=== PATIENT | male | born 1945 | race Caucasian/White ===

== ENCOUNTER → 2021-06-19 | Outpatient (CLI) | payer OTHER ==
[2021-06-19 13:15] LABS: BASOPHILS ABSOLUTE AUTO 0.01 K/mm3 (0.00-0.23); BASOPHILS PERCENT AUTO 0 % (0-2); EOSINOPHILS ABSOLUTE AUTO 0.03 K/mm3 (0.00-0.68); EOSINOPHILS PERCENT AUTO 0 % (0-6); Hematocrit 43.2 % (37.0-53.0); Hemoglobin 15.9 g/dL (13.5-17.5); IMMATURE GRAN ABSOLUTE AUTO 0.01 K/mm3 (0.00-0.10); IMMATURE GRAN PERCENT AUTO 0 % (0-1); LYMPHOCYTES ABSOLUTE AUTO 0.97 K/mm3 (0.84-5.20); LYMPHOCYTES PERCENT AUTO 14 % (21-46); MONOCYTES ABSOLUTE AUTO 0.54 K/mm3 (0.16-1.47); MONOCYTES PERCENT AUTO 8 % (4-13); Mean Corpuscular HGB Conc 36.8 g/dL (31.5-36.5); Mean Corpuscular Volume 93 fL (80-100); Mean Platelet Volume 9.5 fL (9.1-12.4); NEUTROPHILS ABSOLUTE AUTO 5.38 K/mm3 (1.96-9.15); NEUTROPHILS PERCENT AUTO 78 % (41-73); Platelet Count 207 K/mm3 (150-400); RDW Coefficient Variation 11.5 % (11.7-14.2); Red Blood Cell Count 4.67 M/mm3 (4.30-5.90); White Blood Cell Count 6.94 K/mm3 (4.00-11.30)
[2021-06-19 13:29] LABS: Albumin, Blood 3.7 g/dL (3.4-5.0); Albumin/Globulin Ratio 1.1 (0.8-1.8); Bilirubin, Total 0.8 mg/dL (0.1-1.0); Bun/Creatinine Ratio 16.2 (12.0-20.0); Creatinine, Blood 1.48 mg/dL (0.60-1.20); Globulin, Blood 3.5 g/dL (2.2-4.0); Potassium, Blood 4.5 mmol/L (3.5-5.5); Total Protein, Blood 7.2 g/dL (6.4-8.2)
== END | disposition home or self-care (01) ==
LOC: LAB SHORT 13:11 → LAB 13:11
PROVIDERS: Physician Assistant
DX: U07.1 COVID-19 (principal)
CPT/HCPCS: 80053; 85025

== ENCOUNTER 2024-01-04 15:35 | Observation (INO) | payer OTHER ==
[~2024-01-04] VITALS: Ht 182.9 cm; Wt 84.8 kg
[2024-01-04 17:05] LABS: BASOPHILS ABSOLUTE AUTO 0.03 K/mm3 (0.00-0.23); BASOPHILS PERCENT AUTO 1 % (0-2); EOSINOPHILS ABSOLUTE AUTO 0.15 K/mm3 (0.00-0.68); EOSINOPHILS PERCENT AUTO 2 % (0-6); Hematocrit 41.2 % (37.0-53.0); Hemoglobin 14.1 g/dL (13.5-17.5); IMMATURE GRAN ABSOLUTE AUTO 0.02 K/mm3 (0.00-0.10); IMMATURE GRAN PERCENT AUTO 0 % (0-1); LYMPHOCYTES ABSOLUTE AUTO 2.13 K/mm3 (0.84-5.20); LYMPHOCYTES PERCENT AUTO 33 % (21-46); MONOCYTES PERCENT AUTO 9 % (4-13); Mean Corpuscular HGB 34.1 pg (26.0-34.0); Mean Corpuscular HGB Conc 34.2 g/dL (31.5-36.5); Mean Corpuscular Volume 100 fL (80-100); NEUTROPHILS ABSOLUTE AUTO 3.51 K/mm3 (1.96-9.15); NEUTROPHILS PERCENT AUTO 55 % (41-73); Platelet Count 237 K/mm3 (150-400); RDW Coefficient Variation 12.8 % (11.7-14.2); RDW Standard Deviation 46.7 fL (35.1-46.3); Red Blood Cell Count 4.13 M/mm3 (4.30-5.90); White Blood Cell Count 6.44 K/mm3 (4.00-11.30)
[2024-01-04 17:23] LABS: Albumin, Blood 3.9 g/dL (3.4-5.0); Albumin/Globulin Ratio 1.1 (0.8-1.8); Bilirubin, Total 0.4 mg/dL (0.1-1.0); Bun/Creatinine Ratio 16.4 (12.0-20.0); Calcium, Blood 9.1 mg/dL (8.5-10.1); Creatinine, Blood 2.25 mg/dL (0.60-1.20); Globulin, Blood 3.5 g/dL (2.2-4.0); Potassium, Blood 5.7 mmol/L (3.5-5.5); Total Protein, Blood 7.4 g/dL (6.4-8.2)
[2024-01-04] MEDS ORDERED: Albuterol 2.5 MG/3 ML VIAL INH SCH (17:30)
[2024-01-04] MEDS ORDERED: NS 1,000 ML IV SCH ×2 (17:30→18:20)
[2024-01-04] MEDS ORDERED: Sodium Zirconium Cyclosilicate 10 GM Packet PO ONE (17:45)
[2024-01-04 17:58] LABS: Magnesium, Blood 1.7 mg/dL (1.6-2.4)
[2024-01-04] MEDS ORDERED: Ondansetron HCl 2 MG / ML 2ML Vial IV PRN (18:20)
[2024-01-04 18:21] LABS: Source, Urine Clean Catch
[2024-01-04 18:24] LABS: Appearance, Urine Clear (Clear); Bilirubin, Urine Neg (Neg); Blood, Urine Neg (Neg); Glucose Qualitative, Urine Neg (Neg); Ketones, Urine Neg (Neg); Leukocyte Esterase, Urine Neg (Neg); Nitrite, Urine Neg (Neg); Protein, Urine Neg (Neg); Urobilinogen, Urine NORM (Normal)
[2024-01-04 18:25] LABS: Color, Urine Pale Yellow (P-Yellow)
[2024-01-04 19:25] LABS: Bun/Creatinine Ratio 18.6 (12.0-20.0); Calcium, Blood 8.5 mg/dL (8.5-10.1); Creatinine, Blood 1.99 mg/dL (0.60-1.20); Potassium, Blood 4.9 mmol/L (3.5-5.5)
[2024-01-04 19:41] VITALS: BP 141/64
[2024-01-04] MEDS ORDERED: Aspir 8181 MG PO (20:08)
[2024-01-04] MEDS ORDERED: AMLODIPINE BESY10 MG PO (20:09)
[2024-01-04] MEDS ORDERED: ATOR20 PO (20:10)
[2024-01-04] MEDS ORDERED: PAIN RELIEF PA1 EACH TOP (20:11)
[2024-01-04] MEDS ORDERED: THERA-D2000 UNIT PO (20:12)
[2024-01-04] MEDS ORDERED: CHROMIUM PIC1000 MC1 PO (20:12)
[2024-01-04] MEDS ORDERED: ARTHRITIS PAIN150 GM TOP (20:14)
[2024-01-04] MEDS ORDERED: NEURONTIN300 MG PO (20:15)
[2024-01-04] MEDS ORDERED: MIRALAX1714 PO (20:17)
[2024-01-04] MEDS ORDERED: Flomax0.4 MG PO (20:19)
[2024-01-04] MEDS ORDERED: REFRESH RELIEVA10 M4 BOTHEYES (20:20)
[2024-01-04] MEDS ORDERED: Heparin Sodium,Porcine 5,000 UNIT/0.5 ML SDV SC SCH (21:00)
[2024-01-04 22:47] LABS: Bun/Creatinine Ratio 17.4 (12.0-20.0); Calcium, Blood 8.8 mg/dL (8.5-10.1); Creatinine, Blood 1.95 mg/dL (0.60-1.20); Potassium, Blood 5.1 mmol/L (3.5-5.5)
[2024-01-04] MEDS ORDERED: Gabapentin 300 MG Cap PO SCH (23:00)
[2024-01-04] MEDS ORDERED: Tamsulosin HCl 0.4 MG Cap PO SCH (23:01)
[2024-01-04] MEDS ORDERED: Peg 400/Hypromellose/Glycerin 15 DROP/ML BTL BOTHEYES PRN (23:05)
[2024-01-05] MEDS ORDERED: REFRESH TEARS P10 ML BOTHEYES (01:01)
[2024-01-05] MEDS ORDERED: SILDENAFIL CIT100 MG PO (01:02)
--- NOTE | 2024-01-05 03:22 | NUR ---
AT APPROXIMATELY 2054 NOTIFIED BY [employer] PT HAD 4 SECOND RUN OF SVT IN 150'S. DR. CINTRON AND I IN PT ROOM, NOTIFIED.
--- NOTE | 2024-01-05 03:51 | NUR ---
NEW ADMIT. Christiano/PRISCILLA. . NASEEM @76 X1 BAG INFUSING. MONITORING URINE OUPUTM, CONTINENT VIA URINAL. DR. CINTRON CAME UP TO UNIT WHILE IN ROOM, TOLD PT ADMITTED FOR OBSERVATION TO MONITOR KIDNEY FUNCTION. PT STATED WANTS TO GO HOME LATER TODAY THE . DR. ICNTRON AND MYSELF EDUCATED ON PLAN OF CARE AND RECHECKING OF LABS IN AM AND RE-EVALUATING THEN. PT VERBALIZES UNDERSTANDING. AT BEDSIDE, CANNOT DRIVE HERSELF. PT CALLS APPRORPRIATELY. INDEPENDENT IN ROOM. ABRASIONS TO BILATERAL LOWER EXTREMITIES FROM WORKING OUTSIDE AT HOME, PHOTO IN CHART.
[2024-01-05 05:30] VITALS: BP 135/82
[2024-01-05 05:42] LABS: BASOPHILS ABSOLUTE AUTO 0.03 K/mm3 (0.00-0.23); BASOPHILS PERCENT AUTO 1 % (0-2); EOSINOPHILS ABSOLUTE AUTO 0.13 K/mm3 (0.00-0.68); EOSINOPHILS PERCENT AUTO 2 % (0-6); Hematocrit 38.6 % (37.0-53.0); Hemoglobin 13.1 g/dL (13.5-17.5); IMMATURE GRAN ABSOLUTE AUTO 0.02 K/mm3 (0.00-0.10); IMMATURE GRAN PERCENT AUTO 0 % (0-1); LYMPHOCYTES ABSOLUTE AUTO 1.52 K/mm3 (0.84-5.20); LYMPHOCYTES PERCENT AUTO 25 % (21-46); MONOCYTES ABSOLUTE AUTO 0.53 K/mm3 (0.16-1.47); MONOCYTES PERCENT AUTO 9 % (4-13); Mean Corpuscular HGB 33.8 pg (26.0-34.0); Mean Corpuscular HGB Conc 33.9 g/dL (31.5-36.5); Mean Corpuscular Volume 100 fL (80-100); NEUTROPHILS ABSOLUTE AUTO 3.81 K/mm3 (1.96-9.15); NEUTROPHILS PERCENT AUTO 63 % (41-73); Platelet Count 207 K/mm3 (150-400); RDW Coefficient Variation 12.7 % (11.7-14.2); RDW Standard Deviation 46.8 fL (35.1-46.3); Red Blood Cell Count 3.88 M/mm3 (4.30-5.90); White Blood Cell Count 6.04 K/mm3 (4.00-11.30)
[2024-01-05 06:11] LABS: Albumin, Blood 3.5 g/dL (3.4-5.0); Albumin/Globulin Ratio 1.2 (0.8-1.8); Bilirubin, Total 0.3 mg/dL (0.1-1.0); Bun/Creatinine Ratio 18.2 (12.0-20.0); Calcium, Blood 8.8 mg/dL (8.5-10.1); Creatinine, Blood 1.76 mg/dL (0.60-1.20); Potassium, Blood 5.3 mmol/L (3.5-5.5); Total Protein, Blood 6.5 g/dL (6.4-8.2)
[2024-01-05 07:20] VITALS: BP 134/72
[2024-01-05] MEDS ORDERED: Insulin Human Lispro 100 Units/ML 3ML Syringe SC SCH (07:30)
--- NOTE | 2024-01-05 08:18 | NUR ---
Charge Nurse Harleen called regarding sustaining AFIB with RVR rate 140-160's, no medicaitons or orders given NOC nor presently at this time. Awaiting MD to see patiend and give orders. Patient is asymptomatic currently other VSS stable.
[2024-01-05] MEDS ORDERED: AmLODIPine Besylate 5 MG Tab PO SCH (09:00)
[2024-01-05] MEDS ORDERED: Aspirin 81 MG TabEC PO SCH (09:00)
--- NOTE | 2024-01-05 10:34 | NUR ---
DISCHARGE PIV REMOVED CATHETER TIP INTECT, NO REDNESS OR EDEMA NOTED, PRESSURE DRESSING APPLIED WITH COBAN. ALL DISCHARGE INSTRUCTIONS REVIEWED WITH PATIENT AND HIS , BOTH VERBALIZED AN UNDERSTANDING AND WRITTEN DISCHARGE INSTRUCTIONS PROVIDED FOR THEM TO TAKE HOME. PT D/CD TO HOME AT THIS TIME VIA PRIVATE VEHICLE.
[2024-01-06] MEDS ORDERED: Sodium Zirconium Cyclosilicate 10 GM Packet PO SCH (09:00)
== END 2024-01-05 10:34 | disposition home or self-care (01) ==
LOC: ER 15:35 → MEDS 15:36 → ENPENDDIS 01-05 10:10 → MEDS 01-05 10:34
PROVIDERS: Student in an Organized Health Care Education/Training Program; ADMIT Internal Medicine
DX: N17.9 Acute kidney failure, unspecified (principal); E87.5 Hyperkalemia; I12.9 Hypertensive chronic kidney disease with stage 1 through stage 4 chronic kidney disease, or unspecified chronic kidney disease; E11.22 Type 2 diabetes mellitus with diabetic chronic kidney disease; N18.32 Chronic kidney disease, stage 3b; E78.5 Hyperlipidemia, unspecified; E11.40 Type 2 diabetes mellitus with diabetic neuropathy, unspecified; Z79.82 Long term (current) use of aspirin; Z79.899 Other long term (current) drug therapy
CPT/HCPCS: 36415; 76770; 80048; 80053; 81003; 82947; 83036; 83735; 85025; 93005; 93010; 94644; 94664; 96360; 99284-25; A9270; G0378; J7030